=== PATIENT | male | born 1945 | race Caucasian/White ===

== ENCOUNTER → 2018-02-11 | Outpatient (CLI) | payer MEDICARE, OTHER ==
[~2018-02-11] MED LIST: GLYBURIDE-METF1 EAC1 PO; LISINOPRIL10 MG PO; NAPROXEN500 MG PO; SIMVASTATIN40 MG PO
--- NOTE | 2018-02-11 11:13 | Diagnostic Imaging Report ---
PROCEDURE:X-RAY ABDOMEN - KUB COMPARISON:KUB 11/03/2017. INDICATIONS:HEMATURIA FINDINGS: There are no dilated loops of bowel to suggest obstruction. Moderate amount of stool. There are no masses or abnormal calcifications. Stable left pelvic phleboliths. There is no evidence of free air. No acute osseous abnormalities are present. CONCLUSION: No acute abdominal abnormality. No renal stones. Dictated by: Mike Briggs M.D. on 02/11/2018 at 11:13 Electronically approved by: Mike Briggs M.D. on 02/11/2018 at 11:13
== END ==
LOC: RAD 09:42
PROVIDERS: ATTEND Urology
DX: R31.9 Hematuria, unspecified (principal)
CPT/HCPCS: 74018

== ENCOUNTER → 2018-11-15 | Outpatient (CLI) | payer MEDICARE, OTHER ==
--- NOTE | 2018-11-15 10:10 | Diagnostic Imaging Report ---
EXAMINATION: ABDOMEN-1VIEW (KUB) INDICATION: Renal calculus COMPARISON: KUB 02/11/2018 FINDINGS: There is a nonobstructive bowel gas pattern. There is no free intraperitoneal air. Bowel gas partially obscures visualization of the kidneys. No calcifications suspicious for stones. Stable left pelvic phleboliths. Aortic atherosclerotic calcifications. No acute osseous abnormality. IMPRESSION: No acute radiographic abnormality. No evidence of renal stone. Signed by: Dr. Julio Cesar Ramires MD on 11/15/2018 10:06 AM
== END ==
LOC: RAD 09:24
PROVIDERS: ATTEND Urology
DX: N20.0 Calculus of kidney (principal)
CPT/HCPCS: 74018

== ENCOUNTER → 2019-05-10 | Outpatient (CLI) | payer MEDICARE, OTHER ==
--- NOTE | 2019-05-10 12:39 | Diagnostic Imaging Report ---
EXAMINATION: ABDOMEN-2VIEW (KUB) INDICATION: Stones COMPARISON: KUB 11/15/2018 FINDINGS: There is a nonobstructive bowel gas pattern. There is no free intraperitoneal air. Bowel gas partially obscures visualization of the kidneys. No calcifications suspicious for renal or ureteral stones. There are pelvic phleboliths. Prostate calcification is noted. Aortic atherosclerotic calcifications. No acute osseous abnormality. IMPRESSION: 1. No acute radiographic abnormality. 2. No evidence of renal are ureteral stones. Signed by: Dr. Douglas Hendrickson DO on 05/10/2019 12:35 PM
== END ==
LOC: RAD 09:00
PROVIDERS: ATTEND Urology
DX: N20.0 Calculus of kidney (principal)
CPT/HCPCS: 74018

== ENCOUNTER → 2020-07-18 | Outpatient (CLI) | payer MEDICARE, OTHER ==
--- NOTE | 2020-07-18 09:47 | Diagnostic Imaging Report ---
Exam: KUB Indication: Renal calculus Comparison: November 17, 2019. 05/10/2019 Findings: No radiographically apparent renal calculus. Unchanged calcific density in the left pelvis, likely phlebolith. Nonobstructive bowel gas pattern. No free air. Mild degenerative changes of the visualized spine. Partially visualized lung bases appear clear. Impression: No radiographically apparent renal calculi. Signed by: Dr. Odilon García M.D. on 07/18/2020 9:43 AM
== END ==
LOC: RAD 09:03
PROVIDERS: ATTEND Urology
DX: N20.0 Calculus of kidney (principal)
CPT/HCPCS: 74018

== ENCOUNTER → 2020-11-19 | Outpatient (CLI) | payer MEDICARE, OTHER | LOC: RAD 09:16 | PROVIDERS: ATTEND Urology | DX: N20.0 Calculus of kidney (principal) | CPT/HCPCS: 74018 ==

== ENCOUNTER → 2021-06-26 | Outpatient (CLI) | payer MEDICARE, OTHER | LOC: RAD 09:07 | PROVIDERS: ATTEND Urology | DX: N20.0 Calculus of kidney (principal) | CPT/HCPCS: 74018 ==